=== PATIENT | male | born 1940 | race Caucasian/White ===

== ENCOUNTER → 2021-05-11 10:49 | Outpatient (BNVA) | payer MEDICARE, SELFPAY | PROVIDERS: Family Provider Family Medicine; PCP Family Medicine; Visit Provider Orthopaedic Surgery | DX: M25.572 Pain in left ankle and joints of left foot (principal); M67.972 Unspecified disorder of synovium and tendon, left ankle and foot | CPT/HCPCS: 73610 ==

== ENCOUNTER 2021-05-19 15:48 | Outpatient (CLI) | payer MEDICARE, SELFPAY | END 2021-05-19 15:49 | disposition home or self-care (01) | LOC: SPT 15:48 | PROVIDERS: Family Provider Family Medicine; PCP Family Medicine; Visit Provider Podiatrist Foot & Ankle Surgery | DX: Z46.89 Encounter for fitting and adjustment of other specified devices (principal); M76.822 Posterior tibial tendinitis, left leg | CPT/HCPCS: 97760; L1902 ==

== ENCOUNTER → 2022-03-28 15:01 | Outpatient (BNVA) | payer MEDICARE, SELFPAY | PROVIDERS: Family Provider Family Medicine; PCP Family Medicine; Visit Provider Podiatrist Foot & Ankle Surgery | DX: M76.822 Posterior tibial tendinitis, left leg (principal); M25.572 Pain in left ankle and joints of left foot; G89.29 Other chronic pain; Z87.891 Personal history of nicotine dependence | CPT/HCPCS: 99214 ==

== ENCOUNTER → 2022-04-04 15:16 | Outpatient (BNVA) | payer MEDICARE, SELFPAY | PROVIDERS: Family Provider Family Medicine; PCP Family Medicine; Visit Provider Nurse Practitioner Family | DX: I11.0 Hypertensive heart disease with heart failure (principal); I50.32 Chronic diastolic (congestive) heart failure; Z87.891 Personal history of nicotine dependence | CPT/HCPCS: 99214 ==

== ENCOUNTER 2022-06-14 08:17 | Outpatient (CLI) | payer MEDICARE, SELFPAY ==
--- NOTE | 2022-06-14 08:30 | USCV_ITS ---
Mikhail Desouza Age: 81 Gender: M : 1940 Exam Date: 06/14/2022 08:39 Ordering Phys: Freddie Humphrey MD ([email or web address]) Technologist: ROBINSON Exam Location: [facility] [place] Indication: AAA SCREENING HISTORY: Diameter (cm) AP x Transverse x Length Velocity (cm/s) Waveform Prox Aorta: 2.87 x 2.86 x 57.00 Mid Aorta: 2.09 x 2.16 x 85.10 Distal Aorta: 1.81 x 1.68 x 100.00 Right Iliac Prox: 1.07 x 0.94 x 116.50 Left Iliac Prox: 1.14 x 1.13 x 104.90 Stent Prox Landing x x Aneurysmal Sac Max x x Lt Lat Sac Dim Rt Lat Sac Dim Stent Dist Landing x x Right Iliac Stent x x Left Iliac Stent x x Right Renal Art Left Renal Art FINDINGS: Minimal plaques in the abdominal aorta and in the proximal common iliac arteries Normal dimensions of the abdominal aorta and common iliac arteries CONCLUSIONS 1. No evidence of any abdominal aortic aneurysm. 2. No evidence of any common iliac artery aneurysms or stenosis 3. Mild diffuse plaques in the abdominal aorta Dr Bipin Craft MD [facility] (Electronically Signed) Final Date: 15 June 2022 09:50 S
== END 2022-06-14 08:18 | disposition home or self-care (01) ==
PROVIDERS: PCP Student in an Organized Health Care Education/Training Program; Visit Provider Internal Medicine Cardiovascular Disease
DX: Z13.6 Encounter for screening for cardiovascular disorders (principal)
CPT/HCPCS: 93978

== ENCOUNTER 2022-08-21 18:13 | Observation (INO) | payer MEDICARE, SELFPAY ==
--- NOTE | 2022-08-21 18:13 | USCV_ITS ---
Mikhail Desouza Age: 82 Gender: M : 1940 Exam Date: 08/21/2022 18:35 Ordering Phys: Freddie Amezcua MD Technologist: Radha Lin Exam Location: [facility] [place] Indication: CHEST PAIN AND SOB BP: / HR: 71 Rhythm: Sinus Technical Quality: Adequate MEASUREMENTS (Male / Female) Normal Values 2D ECHO LV Diastolic Diameter PLAX 2.6 cm 4.2 - 5.9 / 3.9 - 5.3 cm LV Systolic Diameter PLAX 1.8 cm LV Chamber Size 3.8 cm IVS Diastolic Thickness 1.4 cm 0.6 - 1.0 / 0.6 - 0.9 cm IVS Systolic Thickness 1.2 cm LVPW Diastolic Thickness 1.5 cm 0.6 - 1.0 / 0.6 - 0.9 cm LVPW Systolic Thickness 1.7 cm RV Chamber Size 3.0 cm LVOT Diameter 2.0 cm LV Ejection Fraction 2D Teich 64.1 % LV Ejection Fraction MOD 2C 61.7 % LV Ejection Fraction 2C AL 61.5 % LA Diameter 3.3 cm LA Width 2.3 cm LA Height 4.8 cm RA Width 3.9 cm RA Height 3.6 cm Aorta at Sinotubular Diameter 2.0 cm IVC Diameter 1.3 cm M-MODE Aortic Annulus Diameter 3.6 cm LA Ao Ratio MM 1.3 MV E Point Septal Separation 1.1 cm DOPPLER AV Peak Velocity 209.8 cm/s LVOT Peak Velocity 123.5 cm/s AV Area Cont Eq vti 2.1 cm squared AV Area Cont Eq pk 1.9 cm squared MV Area PHT 2.7 cm squared Mitral E to A Ratio 0.7 MV E' Velocity 38.0 cm/s Mitral E to MV E' Ratio 6.4 Mitral E to LV E' Lateral Ratio 5.4 Mitral E to LV E' Septal Ratio 8.0 TR Peak Velocity 218.1 cm/s TR Peak Gradient 19.0 mmHg TR Mean Velocity 207.9 cm/s TR Mean Gradient 19.9 mmHg TR Velocity Time Integral 78.0 cm TV Peak E Velocity 70.0 cm/s Right Atrial Pressure 3.0 mmHg Pulmonary Artery Systolic Pressu 22.0 mmHg RV Acceleration Time 0.4 s RV Ejection Time 0.2 s RV AcT/ET 2.0 FINDINGS Left Ventricle Left ventricle is normal in size. LV systolic function is normal with EF of 60 to 65%. No regional wall motion abnormalities are seen. Grade 1 diastolic dysfunction Right Ventricle RV is normal in size and function Right Atrium Normal in size Left Atrium Normal in size Mitral Valve Grossly normal mitral valve Aortic Valve Grossly normal. Mild aortic stenosis with aortic valve area of 1.59 cm squared and mean gradient across aortic valve of 9 mmHg. Tricuspid Valve Mild tricuspid regurgitation. Normal pulmonary artery systolic pressure Pulmonic Valve Not well-visualized Pericardium Normal Aorta Normal in size IVC CONCLUSIONS Technically limited quality echocardiogram because of poor ultrasonic windows. LV systolic function is normal with EF 60 to 65%. Grade 1 diastolic dysfunction. Mild aortic stenosis with aortic valve area 1.59 cm squared and mean gradient across her valve of 9 mmHg Mild tricuspid regurgitation No comparison studies are available Jose Quintanilla MD (Electronically Signed) Final Date: 22 August 2022 12:46 S
--- NOTE | 2022-08-21 18:20 | PM.HP ---
Providers/Chief Complaint Admitting Physician: Freddie Amezcua MD Primary Care Provider: Emeka Hatch Chief Complaint: Chest Pain History of Present Illness Mikhail Desouza is a 82 year old male who presented to hospital from [facility] for shortness of breath. Patient has followed up with Dr. Jones in the past, has history of abdominal aortic aneurysm, vasculopath, has been stable until he started working out. Patient did 4 miles on the bike and then started lifting weights for about 20 pounds and then started experiencing shortness of breath. The shortness of breath was associated with exertion. He did not experience any chest pain, fever, diaphoresis, diarrhea, nausea, vomiting. He was sent to our facility because his health teacher was in [place]. Outside facility work-up did not show any remarkable findings other than creatinine 1.6, troponins negative, EKG did not show new ischemic or infarctive changes Patient is chest pain-free Stating that he mistakenly taking extra dose of antihypertensive regimen at home and that reduce his blood pressure to 90/60 mmhg At the time of evaluation he is hemodynamically stable, chest pain-free Review of Systems Const: Denies: fever(s) Eyes: Denies: change in vision ENMT: Denies: throat pain Card: Denies: chest pain Resp: Reports: dyspnea GI: Denies: coffee ground emesis : Denies: urinary frequency Musc: Denies: neck pain Skin/Breast: Denies: rash Neuro: Denies: headache(s) Psych: Reports: anxiety Endo: Denies: polyuria Myles/Lymph: Denies: easy bruising All/Imm: Denies: urticaria Medications/Allergies Home Medications Medication Instructions Recorded Confirmed Last Taken Type azelastine 137 mcg-fluticasone 50 2 spray intranasal BID 11/26/19 08/04/22 Unknown History mcg spray,susp-NaCl 0.9% spray nasal cholecalciferol (vitamin D3) 25 2,000 unit PO ONCE 11/26/19 08/04/22 Unknown History mcg (1,000 unit) capsule coenzyme Q10 75 mg capsule (Ultra 75 mg PO ONCE 11/26/19 08/04/22 Unknown History CoQ10) fluticasone propionate 50 2 spray intranasal BID 11/26/19 08/04/22 Unknown History mcg/actuation nasal spray,suspension (Children's Flonase Allergy Relief) aspirin 81 mg tablet,delayed 81 mg PO DAILY 04/22/20 08/04/22 Unknown History release (Adult Low Dose Aspirin) pantoprazole 40 mg tablet,delayed 40 mg PO DAILY PRN 04/22/20 08/04/22 Unknown History release (Protonix) amlodipine 5 mg tablet 5 mg PO DAILY #90 tabs 12/07/21 08/04/22 Unknown Rx atorvastatin 20 mg tablet 20 mg PO DAILY #90 tabs 12/07/21 08/04/22 Unknown Rx bumetanide 1 mg tablet 1 mg PO DAILY PRN 12/07/21 08/04/22 Unknown History metoprolol succinate 25 mg 12.5 mg PO DAILY #45 tabs 12/07/21 08/04/22 Unknown Rx tablet,extended release 24 hr ranolazine 500 mg tablet,extended 500 mg PO BID #180 tabs 12/07/21 08/04/22 Unknown Rx release,12 hr (Ranexa) naproxen 500 mg tablet 500 mg PO BID 30 days #60 tabs 03/28/22 08/04/22 Unknown Rx valsartan 80 mg tablet 80 mg PO DAILY hypertension #135 04/20/22 08/04/22 Unknown Rx tabs triamcinolone acetonide 0.1 % 1 applic topical BID #80 grams 08/04/22 08/04/22 Unknown Rx topical ointment Allergies Allergy/AdvReac Type Severity Reaction Status Date / Time No Known Allergies Allergy Verified 08/04/22 13:51 PFSH Acute PFSH: Medical History (Updated 08/21/22 @ 18:22 by Freddie Amezcua MD) 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 CAD (coronary artery disease) CHF (congestive heart failure) Chronic cough Claudication in peripheral vascular disease Essential hypertension GERD (gastroesophageal reflux disease) Mixed hyperlipidemia Non-ST elevation (NSTEMI) myocardial infarction Other fatigue Peripheral vascular disease, unspecified Unspecified asthma, uncomplicated Surgical History (Updated 08/21/22 @ 18:22 by Freddie Amezcua MD) H/O hernia repair H/O prostatectomy H/O shoulder surgery History of appendectomy Stented coronary artery Family History Family/Other Cancer Prostate Hodgkin disease Social History Smoking and tobacco status: former smoker Quit status (tobacco): has quit using tobacco Year quit tobacco: 1982 - 1-2 PPD x 20 Years Alcohol intake: former Vitals/I&O/Wt Last Vital Signs O2 Del Method 08/21/22 17:51 Physical Exam Narrative: Pleasant cooperative male Currently sitting without any chest pain S1, S2 Abdomen soft Currently doing well on room air Hemodynamically stable No ataxia Nonfocal neuro exam Pleasant cooperative No signs of cellulitis Appropriate mood and affect EOMI, PERRLA A&P Assessment and plan (1) Unstable angina: Plan Angina equivalent , dyspnea on exertion Established history of coronary disease with vasculopath history Will do stress test tomorrow morning, chest pain-free Looks euvolemic no signs of decompensated heart failure Continue amlodipine and metoprolol Hold losartan because of acute on chronic kidney disease Creatinine 1.6 Check D-dimer Check TSH Full code NPo after midnight . dvt Prophylaxis with heparin Attestations Medical Necessity Statement*: Anticipating discharge within 48 hours Time Spent in Patient Care: 40 Coding Level of Care Code Acute Cash Room Clerk for Ken Moses Diagnoses Unstable angina I20.0
--- NOTE | 2022-08-21 18:49 | PC.NURSE ---
Admit Note Patient admitted to [address] [place] [address] from [facility] via ambulance. Covering service notified. Patient presents with []. Orders reviewed & will continue to monitor. Patient and/or sales representative metals oriented to environment, equipment, and informed of the following as found in the admission booklet: patient rights & responsibilities, visitor policy, hand and respiratory hygiene practice. Other education includes: up coming test and POC. Patient and/or sales representative metals verbalized understanding. Patent unable to confirm medications patient reports to contact Ben [phone]
[2022-08-21] MEDS: heparin 5,000 unit/mL INJ 1 mL 5000 UNIT SUBCUT (18:53)
[2022-08-21] MEDS: perflutren protein-a microsphr 0.22 mg/mL SDV 3 mL IV (19:38)
[2022-08-21 20:40] VITALS: BMI 27.5
[2022-08-21 20:45] VITALS: BP 128/81; PULSE 74; RESP 16; TEMP 36.6; O2SAT 96
[2022-08-21 21:46] LABS: Vitamin B12 281 pg/mL (232-1245)
--- NOTE | 2022-08-21 21:50 | PC.NURSE ---
Pt states he had a bowel movement & noticed some bright red blood in the stool, states it wasn't alot, but enough to be concerned about. States he was dizzy at that time. He had already flushed the stool so it was not seen by any staff. Pt has been instructed to not flush the stool next time. Also instructed to call for assistance when needing to get oob since he was dizzy. Urinal was placed at bedside.
[2022-08-22] VITALS (11 sets, daily range): BP systolic 92–137; BP diastolic 55–77; PULSE 66–83; RESP 15–20; TEMP 36.4–36.7; O2SAT 94–97
--- NOTE | 2022-08-22 | ECG_ITS ---
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 Interpretive Statements NAME OF STUDY: LEXISCAN SESTAMIBI STRESS TEST INDICATION: [ua, ] Procedure: At the baseline, the blood pressure was 114/63 mmHg with a heart rate of 75 bpm. The electrocardiogram showed normal sinus rhythm, normal axis with normal ST and T's. The Lexiscan was infused over a period of 20 seconds. A total of 0.4 mg of Lexiscan was infused. The stress phase was continued for a total of 5 minutes. Heart rate was at the end of stress phase was 90 bpm and a blood pressure of 78/50 mmHg. The EKG at the peak infusion revealed normal sinus rhythm with no significant ST-T wave changes. Sestamibi was injected 20 seconds after the Lexiscan infusion. Blood pressure at the end of recovery phase was 92/55 mmHg with a heart rate of 79 bpm. Conclusion: 1. Normal EKG response to Lexiscan infusion 2. No Lexiscan induced chest pain or cardiac arrhythmia. 3. Hypotensive blood pressure response and normal heart rate response 4. Sestamibi/sestamibi perfusion scan pending; see separate report. Electronically Signed On 08-27-2022 21:15:18 CDT by Jose Quintanilla M.D. [id number]
[2022-08-22 04:17] LABS: Basophils # 0.1 10^3/uL (0.0-0.1); Basophils % 0.8 %; Eosinophils # 0.4 10^3/uL (0.0-0.8); Eosinophils % 4.2 %; Hematocrit 33.4 % (42.0-52.0); Hemoglobin 11.3 g/dL (11.7-16.6); Lymphocytes # 2.3 10^3/uL (0.8-4.8); Lymphocytes % 26.8 %; Mean Corpuscular HGB Conc 33.8 g/dL (30.0-36.0); Mean Corpuscular Hemoglobin 34.3 pg (28.0-34.0); Mean Corpuscular Volume 101.5 fl (80-94); Mean Platelet Volume 9.4 fL (7.4-10.4); Neutrophils # 4.94 10^3/uL (1.8-7.7); Neutrophils % 56.7 %; Nucleated Red Blood Cells % 0 %; Platelet Count 200 10^3/cmm (130-400); Red Blood Count 3.29 10^6/uL (4.1-5.3); Red Cell Distribution Width 12.7 % (12.1-15.1); White Blood Count 8.7 10^3/uL (4.0-10.0)
[2022-08-22 04:26] LABS: D Dimer 0.49 ug/mIFEU (0-0.59)
[2022-08-22 04:38] LABS: Blood Urea Nitrogen 26 mg/dL (8-23); Calcium 8.7 mg/dL (8.5-10.5); Carbon Dioxide 25 mmol/L (22-29); Chloride 97 mmol/L (98-107); Glucose 91 mg/dL (65-115); Magnesium 2.3 mg/dL (1.7-2.3); Osmolality Calculated 276 mOsm/kg (285-295); Sodium 131 mmol/L (136-145)
[2022-08-22 04:40] LABS: Thyroid Stimulating Hormone 2.17 uIU/mL (0.27-4.20)
[2022-08-22] MEDS: heparin 5,000 unit/mL INJ 1 mL 5000 UNIT SUBCUT (06:26)
[2022-08-22] MEDS: regadenoson 0.4 Mg/5 ml Syringe IVP (07:28)
[2022-08-22] MEDS: metoprolol succinate ER (24 HR) 25 mg Tablet 12.5 MG PO (08:55)
[2022-08-22] MEDS: amlodipine 5 mg Tablet PO (08:55)
[2022-08-22] MEDS: ranolazine (12HR) 500 mg Tablet PO ×2 (08:55→17:29)
--- NOTE | 2022-08-22 10:11 | PC.PHAR ---
pt states he takes care of his own medications-pt states he is unsure of all the names of the medications he is prescribed but could verify otc meds and some rx medications-pt states to call Clem Reesndiz at [facility] and he could verify what medications he has filled for the pt - pt states he has a fluid pill he takes prn [facility] pharmacy states not filled bumetanide 1mg since 2019-pt states takes kcl prn-pt states he doesnt have an inhaler that he uses-notes are made in the pharmacy comments
--- NOTE | 2022-08-22 10:33 | ECG_ITS ---
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 Measurements Intervals [place] Rate: 66 P: 37 MI: 230 QRS: -22 QRSD: 110 T: 58 QT: 406 QTc: 427 Interpretive Statements SINUS RHYTHM WITH SINUS ARRHYTHMIA WITH FIRST DEGREE AV BLOCK BORDERLINE LEFT AXIS DEVIATION [QRS AXIS < -20] No previous ECG available for comparison Electronically Signed On 08-22-2022 17:43:13 CDT by Jose Quintanilla M.D. [id number]
--- NOTE | 2022-08-22 10:38 | PM.DCS ---
Discharge Providers Date of Admission: 08/21/22 18:13 Date of Discharge: August 22, 2022 Attending Provider at Admission: Freddie Amezcua MD Attending Provider at Discharge: Freddie Amezcua MD Diagnoses at Discharge Discharge Diagnosis (1) Unstable angina: Status: Acute Reason for Visit Reason for Visit: Chest Pain Hospital Course Hospital Course Patient was transferred from [facility] for dyspnea on exertion management and work-up. Patient has history of established coronary disease history of AAA, vasculopath, used to see Dr. Jones in the past presented to our facility for dyspnea on exertion work-up. D-dimer unremarkable. Hemodynamically remained stable. During hospitalization he had couple episode of bright bleed per rectum he is endorsing history of diverticulosis, 2 polyps were removed few years ago no history of cancer. Stress test was requested. Patient remained chest pain-free. EKG without ischemic or infarctive changes. Myocardial perfusion scan is unremarkable. Repeat H&H showed stable hemoglobin. Patient suffered from diverticular bleed in the hospital. I have given him prescription to check CBC after 3 days. He can follow-up with his PCP he has undergone colonoscopy at [facility]. I have asked him to hold his amlodipine and metoprolol for next 2 to 3 days. He can take Bumex every other day instead of every day regimen. His troponin was unremarkable. Physical Exam Narrative: Can alert Euvolemic S1, S2 Abdomen soft Nonfocal neuro exam Currently doing well on room air No active chest pain No audible stridor or wheezing Discharge Data Studies Completed and Pending Completed Studies During Hospitalization Category Date Time Status Sestamibi Stress Test Request Routine Exams 08/22/22 07:07 Draft Pending at discharge Category Date Time Status Sestamibi Stress Test Request Routine Exams 08/21/22 18:14 Stop Req Hemoglobin and Hematocrit Timed Lab 08/22/22 11:00 Ordered NM joshua perf SPECT r/s* [id number] Routine Nuc Med 08/22/22 18:14 Taken CV. echo wo/w contrast [id number] Routine Ultrasound 08/21/22 18:13 Taken Laboratory Results WBC 8.7 10^3/uL (4.0-10.0) 08/22/22 03:52 RBC 3.29 10^6/uL (4.1-5.3) L 08/22/22 03:52 Hgb 11.3 g/dL (11.7-16.6) L 08/22/22 03:52 Hct 33.4 % (42.0-52.0) L 08/22/22 03:52 MCV 101.5 fl (80-94) H 08/22/22 03:52 MCH 34.3 pg (28.0-34.0) H 08/22/22 03:52 MCHC 33.8 g/dL (30.0-36.0) 08/22/22 03:52 RDW 12.7 % (12.1-15.1) 08/22/22 03:52 Plt Count 200 10^3/cmm (130-400) 08/22/22 03:52 MPV 9.4 fL (7.4-10.4) 08/22/22 03:52 Neut % (Auto) 56.7 % 08/22/22 03:52 Lymph % (Auto) 26.8 % 08/22/22 03:52 Gooding % (Auto) 11.0 % 08/22/22 03:52 Eos % (Auto) 4.2 % 08/22/22 03:52 Baso % (Auto) 0.8 % 08/22/22 03:52 Neut # (Auto) 4.94 10^3/uL (1.8-7.7) 08/22/22 03:52 Lymph # (Auto) 2.3 10^3/uL (0.8-4.8) 08/22/22 03:52 Gooding # (Auto) 1.0 10^3/uL (0.2-0.9) H 08/22/22 03:52 Eos # (Auto) 0.4 10^3/uL (0.0-0.8) 08/22/22 03:52 Baso # (Auto) 0.1 10^3/uL (0.0-0.1) 08/22/22 03:52 Nucleated RBC % (auto) 0 % 08/22/22 03:52 Nucleated RBCs # 0.0 /100WBC 08/22/22 03:52 D-Dimer 0.49 ug/mIFEU (0-0.59) 08/22/22 03:52 Sodium 131 mmol/L (136-145) L 08/22/22 03:52 Potassium 4.0 mmol/L (3.5-5.1) 08/22/22 03:52 Chloride 97 mmol/L (98-107) L 08/22/22 03:52 Carbon Dioxide 25 mmol/L (22-29) 08/22/22 03:52 Anion Gap 13.0 (5-19) 08/22/22 03:52 BUN 26 mg/dL (8-23) H 08/22/22 03:52 Creatinine 1.3 mg/dL (0.7-1.2) H 08/22/22 03:52 GFR Calculation Not Reportable 08/22/22 03:52 Glucose 91 mg/dL (65-115) 08/22/22 03:52 Calculated Osmolality 276 mOsm/kg (285-295) L 08/22/22 03:52 Calcium 8.7 mg/dL (8.5-10.5) 08/22/22 03:52 Magnesium 2.3 mg/dL (1.7-2.3) 08/22/22 03:52 Vitamin B12 281 pg/mL (232-1245) 08/21/22 18:41 TSH 2.17 uIU/mL (0.27-4.20) 08/22/22 03:52 Vitals Last Vital Signs Temp 97.8 F 08/22/22 07:57 Pulse 70 08/22/22 09:35 Resp 16 08/22/22 07:57 BP 137/75 08/22/22 09:35 Pulse Ox 96 08/22/22 07:57 O2 Del Method 08/22/22 07:57 Discharge Plan Discharge Patient Disposition: Home Condition: Stable Prescriptions: Continued aspirin [Adult Low Dose Aspirin] 81 mg tablet,delayed release (DR/EC) 81 mg PO QAM fluticasone propionate [Flonase Allergy Relief] 50 mcg/actuation spray,suspension 1 spray INTRANASAL DAILY cholecalciferol (vitamin D3) 1,000 unit capsule 2,000 unit PO QAM atorvastatin 20 mg tablet 20 mg PO DAILY Qty: 90 3RF ranolazine [Ranexa] 500 mg tablet extended release 12 hr 500 mg PO BID Qty: 180 3RF triamcinolone acetonide 0.1 % ointment 1 applic topical BID Qty: 80 0RF Rx Instructions: Apply to affected area no more than 2 weeks per month. Not for face valsartan 80 mg tablet 80 mg PO DAILY Qty: 135 3RF Rx Instructions: May take additional tab if systolic BP is >150. Klor-Con 10 10 mEq tablet extended release 20 meq PO DAILY PRN (Reason: unknown) CoQ-10 100 mg Capsule 100 mg PO BID Changed bumetanide 1 mg tablet 1 mg PO EVERY OTHER DAY PRN (Reason: Edema) Qty: 10 0RF Held amlodipine 5 mg tablet 5 mg PO DAILY Qty: 90 3RF Hold Instructions: Resume on 08/29/22. metoprolol succinate 25 mg tablet extended release 24 hr 12.5 mg PO DAILY Qty: 45 3RF Hold Instructions: Resume on 08/25/22. Discontinued ibuprofen 800 mg Tablet 800 mg PO Q8H PRN (Reason: Pain) Discharge Orders: Discharge Order (Routine); Ordered 08/22/22 Ordered By: Freddie Amezcua Other Ambulatory Orders: Complete Blood Count w/Auto (Routine) Timeframe: 3 Days Location: Determined by Patient Ordered By: Freddie Amezcua Discharge Diet: Cardiac Discharge Activity: Increase activity as tolerated Patient Instructions: Opioid Safety Discharge Attestations Time Spent in Discharge Care*: less than 30 min Quality Metrics Clinical Quality Measures [ No reported AMI, CVA or VTE this stay] Coding Level of Care Code Acute Chg FW DC note Diagnoses Unstable angina I20.0
[2022-08-22 11:30] LABS: Troponin T (5th) Once 15 ng/L (0-15)
--- NOTE | 2022-08-22 12:06 | PC.CHAP ---
Pastoral Care Encounter/Spiritual Assessment Type of Contact [] Declined seo analyst visit [] Patient/Family/Request visit [] Outpatient visit [] Follow-up visit [] Physician referral [] Code/Alert [x] Routine visit [] Staff referral [] Actively dying [] Patient sleeping [] Family support [] [] Out of room [] Palliative care [] [] Receiving care in room [] Pre-surgical visit [] Trauma [] Long length of stay [] ICU visit [] Other: Relational/Emotional Strength [x] Patient feels connected with others/family/visitors/staff [] Distress [] Loneliness/isolation [] Abandonment Spirituality of Patient [x] Person of Lovely [x] Attends Yazidi of their Lovely [x] Believes in Prayer [x] Reads Bible or Amish materials [] There are Spiritual issues to be addressed Paper Box Maker Interventions x[] Prayer [x] Active listening [x] Non-anxious presence x[] Spiritual/emotional support [] Crisis/trauma care [] Spiritual counseling [] Bereavement support [] Provided bereavement packet [] Provided Bible/devotional materials [] Provided toy/stuffed animal, coloring book to patient or family member [] Provided Communion [] Anointing/[place] [] Salvation [x] Completed spiritual assessment [] Other: Impact on Illness or Injury [] Angry [] Fearful [] Anxious [] Often cries [] Exhaustion [] Unable to work [] Unable to attend mandaen [] Unable to walk/stand [] Unable to read [] Unable to drive [] Unable to eat/drink [] Unable to sleep [] Unable to be with family [] Patient intubated [] Other: Summary Time spent with patient 10 min
--- NOTE | 2022-08-22 13:34 | PM.PN ---
Subjective Subjective: Patient had BRB per rectum his very anxious to return home however he is hemodynamically stable Hemoglobin repeat showed stable values Is not tachycardic or hypotensive Orthostasis positive Vitals/I&O/Wt Last Vital Signs Temp 97.7 F 08/22/22 12:45 Pulse 69 08/22/22 12:45 Resp 16 08/22/22 12:45 BP 127/71 08/22/22 12:45 Pulse Ox 97 08/22/22 12:45 O2 Del Method 08/22/22 11:31 08/21/22 08/22/22 08/22/22 22:59 06:59 14:59 Intake Total 240 / 240 Output Total 350 / 350 600 / 950 Balance -350 / -350 -600 / -950 240 / 240 Weight last 48 hrs Weight 92.079 kg Physical Exam Narrative: Euvolemic S1, S2 Abdomen soft Nonf ocal neuro exam Cu rrently doing well on room air No ac tive chest pain No audible stridor o r wheezin Data : 08/22/22 10:55 08/22/22 03:52 A&P Assessment and plan (1) Hematochezia: (2) Unstable angina: Plan Hematochezia Not a candidate for colonoscopy or endoscopy Hemoglobin stable, hemodynamically stable Unstable angina stress test negative Monitor him 1 more day Patient will need outpatient colonoscopy if remains stable We will discharge him tomorrow Hold DVT prophylaxis Attestations Medical Necessity Statement*: Discharge tomorrow Time Spent in Patient Care: 40 Coding Level of Care Code Acute Vertical Punch Operator for Ken Moses Diagnoses Hematochezia K92.1 Unstable angina I20.0
[2022-08-22 16:33] LABS: Hematocrit 32.9 % (42.0-52.0); Hemoglobin 11.3 g/dL (11.7-16.6)
--- NOTE | 2022-08-22 18:14 | NMCV_ITS ---
NM joshua perf SPECT r/s* [id number] Mikhail Desouza Age: 82 Gender: M : 1940 Exam Date: 08/22/2022 18:14 Ordering Phys: Freddie Amezcua MD Technologist: SHEBA Adrian Exam Location: [facility] Indications: CHEST PAIN STRESS TEST Please see separate stress test [facility] for full findings IMAGE PROTOCOL Rest/Stress 1 Lexiscan Day Radiopharmaceutical Dose (mCi) Administration Site Administered by Rest: Tc-99m 10.9 IV SHEBA Mejias Sestamibi Stress:Tc-99m 32.9 IV SHEBA Mejias Sestamibi Rest: 22-Aug-2022 6 Discovery 630 Stress: 22-Aug-2022 30 Discovery 630 0.4mg Lexiscan. Supine position only as patient was unable to lay prone. SPECT RESULTS Technical Quality: Excellent Raw Data Analysis: Normal Image Corrections: No attenuation or motion correction applied Summed Stress Score: 0 Summed Rest Score: 0 Summed Difference Score: 0 PERFUSION FINDINGS SPECT images demonstrate homogeneous tracer distribution throughout the myocardium. FUNCTIONAL RESULTS (calculated via Gated SPECT) Stress Image LV EF (%): 66 Stress EDV (mL):88 TID: 1.22 Stress ESV (mL):30 FUNCTIONAL FINDINGS: There is normal left ventricular systolic function. Elevated TID ratio IMPRESSIONS 1. Normal myocardial perfusion imaging with no evidence of ischemia 2. LV systolic function is normal Jose Quintanilla MD (Electronically Signed) Final Date: 22 August 2022 11:27 S
--- NOTE | 2022-08-22 19:15 | PC.NURSE ---
Bedside report with DAWSON Dewitt and DAWSON Colvin.
--- NOTE | 2022-08-23 00:12 | PC.NURSE ---
Addendum entered by Elise Murillo RN 08/23/22 00:21: Xanax 0.25 mg x1 ordered. Original Note: Dr. Dunbar notified of patient asking for something to help him sleep. Patient states he hasn't slept in over 24 hours.
[2022-08-23] MEDS: ALPRAZolam 0.5 mg Tablet 0.25 MG PO (00:38)
[2022-08-23 03:32] VITALS: BP 111/64; PULSE 67; RESP 18; TEMP 36.6; O2SAT 92
[2022-08-23 04:43] LABS: Basophils % 0.4 %; Eosinophils # 0.3 10^3/uL (0.0-0.8); Eosinophils % 3.5 %; Hematocrit 31.7 % (42.0-52.0); Hemoglobin 10.7 g/dL (11.7-16.6); Lymphocytes # 2.7 10^3/uL (0.8-4.8); Lymphocytes % 28.1 %; Mean Corpuscular HGB Conc 33.8 g/dL (30.0-36.0); Mean Corpuscular Volume 100.6 fl (80-94); Mean Platelet Volume 9.1 fL (7.4-10.4); Monocytes # 1.1 10^3/uL (0.2-0.9); Monocytes % 11.7 %; Neutrophils % 55.9 %; Nucleated Red Blood Cells % 0 %; Platelet Count 185 10^3/cmm (130-400); Red Blood Count 3.15 10^6/uL (4.1-5.3); Red Cell Distribution Width 12.8 % (12.1-15.1); White Blood Count 9.5 10^3/uL (4.0-10.0)
[2022-08-23 05:21] LABS: Anion Gap 11.3 (5-19); Blood Urea Nitrogen 26 mg/dL (8-23); Calcium 8.6 mg/dL (8.5-10.5); Carbon Dioxide 26 mmol/L (22-29); Chloride 96 mmol/L (98-107); Glucose 106 mg/dL (65-115); Osmolality Calculated 273 mOsm/kg (285-295); Potassium 4.3 mmol/L (3.5-5.1); Sodium 129 mmol/L (136-145)
[2022-08-23 08:00] VITALS: BP 130/75; PULSE 69; RESP 16; TEMP 36.5; O2SAT 95
[2022-08-23 08:12] LABS: Hematocrit 33.4 % (42.0-52.0); Hemoglobin 11.5 g/dL (11.7-16.6)
[2022-08-23] MEDS: sennosides-docusate Tablet 1 TAB PO (08:15)
[2022-08-23] MEDS: ranolazine (12HR) 500 mg Tablet PO (08:15)
[2022-08-23] MEDS: amlodipine 5 mg Tablet PO (08:16)
[2022-08-23 08:59] VITALS: PULSE 71; RESP 17; O2SAT 95
[2022-08-23 10:18] VITALS: PULSE 71; RESP 17; O2SAT 95
== END 2022-08-23 12:00 | disposition home or self-care (01) ==
PROVIDERS: Admitting Provider Internal Medicine; Visit Provider Internal Medicine
DX: I25.110 Atherosclerotic heart disease of native coronary artery with unstable angina pectoris (principal); K92.1 Melena; E78.2 Mixed hyperlipidemia; K21.9 Gastro-esophageal reflux disease without esophagitis; I25.2 Old myocardial infarction; I11.0 Hypertensive heart disease with heart failure; I50.9 Heart failure, unspecified; Z87.891 Personal history of nicotine dependence
CPT/HCPCS: 36415; 78452; 80048; 82607; 83735; 84443; 84484; 85014; 85018; 85025; 85378; 93005; 93017; 96372; A9500; C8929; G0378; G0379; J1644; J2785; Q9956

== ENCOUNTER → 2023-03-31 11:59 | Outpatient (BNVA) | payer MEDICARE, SELFPAY | PROVIDERS: Visit Provider Nurse Practitioner Family | DX: L30.4 Erythema intertrigo (principal); L98.8 Other specified disorders of the skin and subcutaneous tissue; L81.4 Other melanin hyperpigmentation; D22.4 Melanocytic nevi of scalp and neck | CPT/HCPCS: 99213 ==

== ENCOUNTER → 2023-05-24 10:27 | Outpatient (BNVA) | payer MEDICARE, SELFPAY | PROVIDERS: Visit Provider Nurse Practitioner Family | DX: L30.4 Erythema intertrigo (principal); L98.8 Other specified disorders of the skin and subcutaneous tissue; L82.1 Other seborrheic keratosis; L81.4 Other melanin hyperpigmentation; D22.4 Melanocytic nevi of scalp and neck; L57.8 Other skin changes due to chronic exposure to nonionizing radiation; L90.5 Scar conditions and fibrosis of skin | CPT/HCPCS: 99214 ==

== ENCOUNTER → 2023-08-10 13:55 | Outpatient (BNVA) | payer MEDICARE, SELFPAY | PROVIDERS: PCP Physician Assistant; Visit Provider Nurse Practitioner Family | DX: L82.1 Other seborrheic keratosis (principal); L81.4 Other melanin hyperpigmentation; D22.4 Melanocytic nevi of scalp and neck; L57.8 Other skin changes due to chronic exposure to nonionizing radiation; L90.5 Scar conditions and fibrosis of skin; L30.4 Erythema intertrigo; L82.0 Inflamed seborrheic keratosis; L57.0 Actinic keratosis | CPT/HCPCS: 17000; 17110; 99213 ==

== ENCOUNTER → 2024-02-16 10:44 | Outpatient (BNVA) | payer MEDICARE, SELFPAY | PROVIDERS: PCP Physician Assistant; Visit Provider Nurse Practitioner Family | DX: L57.0 Actinic keratosis (principal); L82.0 Inflamed seborrheic keratosis; L85.3 Xerosis cutis; L57.8 Other skin changes due to chronic exposure to nonionizing radiation; L81.4 Other melanin hyperpigmentation | CPT/HCPCS: 17000; 17110; 99214 ==

== ENCOUNTER → 2024-08-19 14:48 | Outpatient (BNVA) | payer MEDICARE, SELFPAY | PROVIDERS: PCP Physician Assistant; Visit Provider Nurse Practitioner Family | DX: L57.8 Other skin changes due to chronic exposure to nonionizing radiation (principal); L81.4 Other melanin hyperpigmentation; L82.0 Inflamed seborrheic keratosis; L57.0 Actinic keratosis; D48.5 Neoplasm of uncertain behavior of skin | CPT/HCPCS: 11102; 17000; 17110; 99213 ==

== ENCOUNTER → 2024-11-04 14:04 | Outpatient (BNVA) | payer MEDICARE, SELFPAY | PROVIDERS: PCP Physician Assistant; Visit Provider Nurse Practitioner Family | DX: L85.3 Xerosis cutis (principal); L57.8 Other skin changes due to chronic exposure to nonionizing radiation; L81.4 Other melanin hyperpigmentation; L82.0 Inflamed seborrheic keratosis; L57.0 Actinic keratosis | CPT/HCPCS: 17000; 17110; 99213 ==

== ENCOUNTER → 2025-07-11 14:36 | Outpatient (BNVA) | payer MEDICARE, SELFPAY | PROVIDERS: PCP Physician Assistant; Visit Provider Nurse Practitioner Family | DX: L57.8 Other skin changes due to chronic exposure to nonionizing radiation (principal); L81.4 Other melanin hyperpigmentation; D82.1 Di George's syndrome; D22.5 Melanocytic nevi of trunk; L57.0 Actinic keratosis | CPT/HCPCS: 17000; 99213 ==

== ENCOUNTER → 2025-09-25 15:39 | Outpatient (BNVA) | payer MEDICARE, SELFPAY | PROVIDERS: PCP Physician Assistant; Visit Provider Nurse Practitioner Family | DX: L57.8 Other skin changes due to chronic exposure to nonionizing radiation (principal); L81.4 Other melanin hyperpigmentation; L82.1 Other seborrheic keratosis; D22.5 Melanocytic nevi of trunk; D48.5 Neoplasm of uncertain behavior of skin | CPT/HCPCS: 11102; 99213 ==

== ENCOUNTER → 2025-10-30 09:56 | Outpatient (BNVA) | payer MEDICARE, SELFPAY | PROVIDERS: PCP Physician Assistant; Visit Provider Dermatology | DX: C44.722 Squamous cell carcinoma of skin of right lower limb, including hip (principal); L57.0 Actinic keratosis | CPT/HCPCS: 17000; 17262 ==